=== PATIENT | male | born 1945 | race Caucasian/White ===

== ENCOUNTER 2016-07-14 11:17 | Day surgery (SDC) | payer MEDICARE ==
[~2016-07-14 11:17] MED LIST: ALPRAZolam 0.25 MG TAB PO PRN; ASPIRIN 325 MG TAB PO STA; SODIUM CHLORIDE 0.9% 1,000 ML in EMPTY BAG 1 BAG IV ONE
[2016-07-14 12:24] LABS: Basophils # (A) 0.1 k/uL (0-0.2); Basophils % (A) 1 %; CH 31.2; CHCM 33.7; Eosinophils # (A) 0.2 k/uL (0-0.7); Eosinophils % (A) 3 %; HCT 40.7 % (39.0-53.0); HDW 2.52; HGB 13.4 gm/dL (13.0-17.5); Luc # (Auto) 0.21; Luc % (Auto) 3; Lymphocytes # (A) 2.8 k/uL (1.0-4.8); Lymphocytes % (A) 36 %; MCH 30.8 pg (25.0-35.0); MCHC 33.1 g/dL (31.0-37.0); MCV 93.1 fL (80.0-100.0); Mean Platelet Volume 6.7; Monocytes # (A) 0.5 k/uL (0-1.0); Monocytes % (A) 6 %; Neutrophils # (A) 4.2 k/uL (1.3-7.7); Neutrophils % (A) 52 %; RBC 4.37 m/uL (4.30-5.90); RDW 13.5 % (11.5-15.5); WBC 7.9 k/uL (3.8-10.6); WBC (Perox) 7.89
[2016-07-14 13:11] LABS: Blood Urea Nitrogen 16 mg/dL (9-20); Calcium 9.1 mg/dL (8.4-10.2); Carbon Dioxide 25 mmol/L (22-30); Glucose 93 mg/dL (74-99); Non-African American GFR(MDRD) 54 (>60 ml/min/1.73 sqM); Potassium 4.4 mmol/L (3.5-5.1); Sodium 142 mmol/L (137-145)
[2016-07-14 13:20] LABS: Anion Gap 11 mmol/L; Chloride 106 mmol/L (98-107)
[2016-07-14] MEDS: HYDROcodone/APAP 10-325MG 1 EACH TAB ONE ×2 (14:22→14:30)
[2016-07-14] MEDS ORDERED: LIDOCAINE 2% INJ 20 MG/ML SQ ONE (14:51)
[2016-07-14] MEDS ORDERED: MIDAZOLAM 2 MG/2 ML VIAL IV ONE (14:52)
[2016-07-14] MEDS ORDERED: HEPARIN SODIUM 1,000 UNIT/ML VIAL IV ONE (14:58)
[2016-07-14] MEDS ORDERED: CLOPIDOGREL 75 MG TAB PO ONE (15:16)
[2016-07-14] MEDS ORDERED: HYDROcodone/APAP 10-325MG 1 EACH TAB PO PRN (15:44)
[2016-07-14] MEDS ORDERED: SODIUM CHLORIDE 0.9% 1,000 ML IV SCH (15:45)
[2016-07-14] MEDS ORDERED: IODIXANOL 320 MG/ML 100 ML INTRAARTER ONE (15:48)
[2016-07-14] MEDS ORDERED: ATROPINE SULFATE 0.1 MG/ML 10ML SYRINGE ONE ×2 (17:46→20:51)
[2016-07-14] MEDS ORDERED: hydrALAZINE HCL 20 MG/ML 1 ML VIAL IVP STA (18:53)
[2016-07-14] MEDS ORDERED: ENALAPRILAT 1.25 MG/ML 1 ML VIAL IVP STA (18:53)
[2016-07-14] MEDS ORDERED: HYDROmorphone 1 MG/ML 1 ML SYRINGE IVP STA (19:57)
[2016-07-14 20:18] VITALS: BMI 40.4
[2016-07-14 20:51] LABS: Glucose,Whole Blood 94 mg/dL (75-99)
[2016-07-14] MEDS ORDERED: MELATONIN 5 MG TABLET PO SCH (21:00)
[2016-07-14] MEDS ORDERED: LOSARTAN 50 MG TAB PO SCH (21:00)
[2016-07-14] MEDS ORDERED: ATORVASTATIN 10 MG TAB PO SCH (21:00)
[2016-07-14] MEDS ORDERED: ASPIRIN 325 MG TAB PO SCH (21:00)
[2016-07-14] MEDS ORDERED: MONTELUKAST 10 MG TAB PO SCH (21:00)
--- NOTE | 2016-07-14 21:14 | PCN ---
DATE OF PROCEDURE: Performing physician: Hakeem Lee M.D. welder assembler. PROCEDURES PERFORMED: 1. Selective right popliteal angiogram. 2. An atherectomy of the right popliteal artery using the TurboHawk hock device with good angiographic results. 3. Successful balloon angioplasty of the right popliteal artery using 7.0 x 40 mm drug-coated balloon with a good angiographic results. 4. Selective left common femoral artery angiogram. INDICATION: This is a pleasant 70-year-old gentleman who as sent by Dr. Cisneros for further evaluation regarding peripheral arterial disease. He underwent a peripheral angiogram a few weeks ago and that showed severe bilateral SFA disease. He was brought today to undergo a PYROMETALLURGICAL ENGINEER of the right SFA. Approach: Left common femoral artery in a contralateral retrograde technique. COMPLICATIONS: None. Level of sedation: Moderate. PROCEDURE DESCRIPTION: After obtaining informed consent, the patient was brought to the cardiac medical laboratory manager. The left common femoral artery was cannulated using micropuncture technique, the micropuncture wire passed easily, then I placed a 6 [place] sheath in the left common femoral artery. Subsequently anticoagulation was initiated using heparin and the patient was given a weight-based heparin. After that, I did select the right SFA using an 0.035 advantage wire with support from a 5 [place] Lucian rim catheter. I did advance the wire to the distal right SFA. Subsequently, I did exchange my [address] [place]ian sheath into [address] 6 [place] Lucian sheath using the 0.035 advantage wire. The tip of the sheath was positioned in the proximal right SFA. After that, I did cross the critical lesion involving the right popliteal using an 0.014 wire. After that, I did an atherectomy of the right popliteal using the TurboHawk device and I was able to extract plaque from the right popliteal artery. Subsequently, I did balloon angioplasty of the right popliteal initially using 5.0 x 20 mm balloon and then using 7.0 x 40 mm drug-coated balloon which was inflated under 4 atmospheres for 20 seconds. The following angiogram showed good angiographic result without perforation and without dissection. After that, I did exchange my long [address] Lucian sheath into short [address] [place]ian sheath using the advantage wire. Subsequently, I did selective left common femoral artery angiogram. The procedure was completed without any complication. POSTPROCEDURE MANAGEMENT: 1. Dual antiplatelet therapy. 2. Risk factor modifications. 3. Follow up with the patient. 4. PYROMETALLURGICAL ENGINEER of the left SFA.
--- NOTE | 2016-07-14 21:21 | LTR ---
July 14, 2016 RE: Reagan Sultana Eladio Dear Melchor: Mr. Reagan Sultana underwent successful atherectomy and balloon angioplasty of very critical right popliteal artery. The procedure was completed without any complication. Thank you for allowing me to participate in his care and please do not hesitate to call if you have any questions or concerns. Sincerely, FELICIANO MAYBERRY MD
[2016-07-14] MEDS: CILOSTAZOL 100 MG TAB PO SCH (22:24)
[2016-07-14] MEDS: DOCUSATE 100 MG CAP PO SCH (22:25)
[2016-07-15 05:30] VITALS: TEMP 97.2
[2016-07-15 05:58] LABS: Glucose,Whole Blood 97 mg/dL (75-99)
[2016-07-15] MEDS ORDERED: CLOPIDOGREL 75 MG TAB PO SCH (09:00)
[2016-07-15 09:21] VITALS: BP 127/59; PULSE 80; RESP 16
[2016-07-15] MEDS: DOCUSATE 100 MG CAP PO SCH (09:21)
[2016-07-15] MEDS: CILOSTAZOL 100 MG TAB PO SCH (09:21)
[2016-07-15 09:32] LABS: Basophils # (A) 0.1 k/uL (0-0.2); Basophils % (A) 1 %; CHCM 32.8; Eosinophils % (A) 0 %; HCT 38.6 % (39.0-53.0); HDW 2.37; HGB 12.5 gm/dL (13.0-17.5); Luc # (Auto) 0.14; Luc % (Auto) 1; Lymphocytes # (A) 1.5 k/uL (1.0-4.8); Lymphocytes % (A) 15 %; MCH 30.7 pg (25.0-35.0); MCHC 32.3 g/dL (31.0-37.0); MCV 94.9 fL (80.0-100.0); Mean Platelet Volume 6.9; Monocytes # (A) 0.5 k/uL (0-1.0); Monocytes % (A) 5 %; Neutrophils # (A) 7.7 k/uL (1.3-7.7); Neutrophils % (A) 78 %; RBC 4.07 m/uL (4.30-5.90); RDW 13.6 % (11.5-15.5); WBC 9.9 k/uL (3.8-10.6); WBC (Perox) 10.45
[2016-07-15 10:02] LABS: Potassium 4.9 mmol/L (3.5-5.1)
[2016-07-15] MEDS ORDERED: CHOLECALCIFEROL 1,000 UNIT TAB PO SCH (12:00)
--- NOTE | 2016-07-16 08:44 | DS ---
DATE OF ADMISSION: 07/14/2016 DATE OF DISCHARGE: 07/15/2016 BRIEF HISTORY: This is a pleasant 70-year-old gentleman who was admitted to the hospital yesterday and underwent successful angioplasty of the right popliteal artery with a good angiographic result and without any complication. The left groin, which was the access site, seems to be soft and nontender and without any bruises. The patient is going to be discharged home on dual antiplatelet therapy and I will follow up with the patient in the office as an outpatient.
--- NOTE | 2016-07-19 11:39 | IR ---
EXAMINATION TYPE: IR bellhop captain femoral popliteal DATE OF EXAM: 07/19/2016 11:36 AM COMPARISON: NONE HISTORY: Peripheral vascular occlusive disease. Fluoroscopy was applied to the referring clinician. See dictated report from cardiology.
--- NOTE | 2016-07-20 10:49 | CDI ---
Mr. Sultana was seen on 07/14 for a GATE MANAGER of the right popliteal artery. According to the Official Guidelines for Coding and Reporting (Section IV), in the outpatient setting diagnoses documented as "probable," "suspected," "questionable," "rule out," or "working diagnosis" are not coded. Rather, code the condition(s) to the highest degree of certainty for that encounter/visit, such as symptoms, signs, abnormal test results, or other reason for the visit. The term "consistent with" is considered one of these examples in which it is considered a diagnosis that is not confirmed. Per your H&P, this patient describes bilateral lower extremity discomfort consistent with intermittent claudication. Please clarify the diagnosis of PAD for your patient. *Patient has PAD with intermittent claudication *Patient has PAD without intermittent claudication *Other (please specify) *Clinically unable to determine *Unknown MTDD
== END 2016-07-15 11:27 | disposition home or self-care (01) ==
LOC: CATHCVL 11:17 → 6SEL 15:42 → CATHCVL 07-15 11:27
PROVIDERS: ATTEND Internal Medicine Interventional Cardiology
DX: I73.9 Peripheral vascular disease, unspecified (principal); I10 Essential (primary) hypertension; E78.5 Hyperlipidemia, unspecified; Z87.891 Personal history of nicotine dependence; Z82.49 Family history of ischemic heart disease and other diseases of the circulatory system; Z79.82 Long term (current) use of aspirin; Z79.899 Other long term (current) drug therapy; Z88.5 Allergy status to narcotic agent; Z88.0 Allergy status to penicillin
CPT/HCPCS: 37225; 80048 ×2; 85025 ×2; C1894 ×2; C1769 ×5; C1887; C1725; C1714; C2623; J2001; J2250; J0360; Q9967; J1644

== ENCOUNTER 2016-08-05 07:58 | Day surgery (SDC) | payer MEDICARE ==
[~2016-08-05 07:58] MED LIST changes: -ALPRAZolam 0.25 MG TAB PO PRN; +ALPRAZolam 0.5 MG TAB PO PRN; +ATORVASTATIN 80 MG TAB PO STA; +NITROGLYCERIN SL TABS 0.4 MG TAB SUBLINGUAL PRN; -SODIUM CHLORIDE 0.9% 1,000 ML in EMPTY BAG 1 BAG IV ONE
[2016-08-05] MEDS ORDERED: SODIUM CHLORIDE 0.9% 1,000 ML in EMPTY BAG 1 BAG IV ONE (08:00)
[2016-08-05] MEDS: ALPRAZolam 0.25 MG TAB PO PRN ×2 (08:52→14:22)
[2016-08-05 08:59] LABS: Anion Gap 10 mmol/L; Blood Urea Nitrogen 14 mg/dL (9-20); Calcium 8.8 mg/dL (8.4-10.2); Carbon Dioxide 22 mmol/L (22-30); Chloride 110 mmol/L (98-107); Glucose 89 mg/dL (74-99); Non-African American GFR(MDRD) >60 (>60 ml/min/1.73 sqM); Sodium 142 mmol/L (137-145)
[2016-08-05] MEDS ORDERED: MIDAZOLAM 2 MG/2 ML VIAL IV ONE (12:48)
[2016-08-05] MEDS ORDERED: LIDOCAINE 2% INJ 20 MG/ML SQ ONE (12:50)
[2016-08-05] MEDS: VERAPAMIL SYRINGE (5 MG/10 ML) INTRAARTER ONE ×2 (12:51→13:04)
[2016-08-05] MEDS ORDERED: IOHEXOL 350 MG/ML 100 ML BOTTLE INJ ONE (13:04)
[2016-08-05] MEDS ORDERED: RX INFO: IV CONTRAST WAS GIVEN 1 EACH MISC MISCELLANE PRN (13:08)
[2016-08-05] MEDS ORDERED: SODIUM CHLORIDE 0.9% 1,000 ML IV SCH (13:15)
[2016-08-05 13:39] VITALS: RESP 16
[2016-08-05] MEDS ORDERED: ALPRAZolam 0.25 MG TAB PO STA (14:20)
[2016-08-05 15:13] VITALS: BMI 32.3
[2016-08-05 15:44] VITALS: BP 189/87; PULSE 64; TEMP 97.8
--- NOTE | 2016-08-05 22:09 | CC ---
DATE OF SERVICE: 08/05/2016 PERFORMING PHYSICIAN: Hakeem Lee M.D., spanish teacher. PROCEDURE PERFORMED: Selective right and left coronary angiogram. INDICATION: This is a very pleasant 70-year-old gentleman with known peripheral arterial disease who was experiencing mild chest discomfort. He underwent myocardial perfusion imaging stress test which showed evidence of anterolateral ischemia. He was brought today to undergo a heart catheterization. APPROACH: Right radial artery. COMPLICATIONS: None. LEVEL OF SEDATION: Moderate. PROCEDURE DESCRIPTION: After obtaining informed consent, the patient was brought to the cardiac wharf laborer. Right radial artery was cannulated using micropuncture technique. The micropuncture passed easily, then I placed a 6 Serbian sheath in the right radial artery. Subsequently I gave the patient 2 mg of Verapamil IA and 5000 units of heparin IV. After that I did selective right and left coronary angiogram using JR4 and JL3.5 catheters. The procedure was completed without any complication. SELECTIVE CORONARY ANGIOGRAM: 1. The right coronary artery is chronically occluded in the proximal portion and fills by collateral from the left coronary system. 2. The left main is angiographically normal. It bifurcates into the left circumflex and left anterior descending artery. 3. The left circumflex is a large-caliber vessel and it is a codominant vessel. The proximal left circumflex appeared to have mild disease only and gives rise to the first OM branch, which is a small- to medium-caliber vessel and seems to be angiographically normal. The mid left circumflex appeared to have mild disease only. The left circumflex distally is normal and bifurcates into PDA and PLV branches; both are angiographically normal. 4. Left anterior descending artery. The proximal left anterior descending artery appeared to be angiographically normal and gives rises to the first diagonal branch, which seems to be angiographically normal. The mid LAD has mild disease only and the LAD distally appeared to be angiographically normal. CONCLUSION: Single-vessel coronary artery disease with chronic total occlusion of the proximal right coronary artery which fills by collateral from the left coronary system. POST-PROCEDURE MANAGEMENT: 1. Maximize medical treatment. 2. Follow up with the patient.
--- NOTE | 2016-08-05 22:11 | LTR ---
August 05, 2016 RE: Rd Reagan Eladio Dear Melchor, Mr. Reagan Sultana underwent a heart catheterization which showed chronic total occlusion of the right coronary artery which fills by collaterals from the left coronary system. Maximized medical treatment is recommended at this point of time. I want to thank you for allowing me to participate in his care. Please do not hesitate to call with any question or concern. Sincerely, FELICIANO MAYBERRY MD
== END 2016-08-05 19:05 | disposition home or self-care (01) ==
LOC: CATHCVL 07:58 → 3OBS 13:15 → CATHCVL 19:05
PROVIDERS: ATTEND Internal Medicine Interventional Cardiology
DX: I25.110 Atherosclerotic heart disease of native coronary artery with unstable angina pectoris (principal); I25.82 Chronic total occlusion of coronary artery; R94.39 Abnormal result of other cardiovascular function study; I73.9 Peripheral vascular disease, unspecified; I10 Essential (primary) hypertension; E78.5 Hyperlipidemia, unspecified; Z79.01 Long term (current) use of anticoagulants; Z79.82 Long term (current) use of aspirin; Z79.891 Long term (current) use of opiate analgesic; Z79.899 Other long term (current) drug therapy; Z88.5 Allergy status to narcotic agent; Z88.0 Allergy status to penicillin; Z82.49 Family history of ischemic heart disease and other diseases of the circulatory system; Z87.891 Personal history of nicotine dependence; E78.00 Pure hypercholesterolemia, unspecified
CPT/HCPCS: 93454; 80048; 99152; C1894; J2001; J2250; Q9967; J1644

== ENCOUNTER 2016-08-25 11:01 | Day surgery (SDC) | payer MEDICARE ==
[2016-08-23 09:24] VITALS: BMI 33.2
[~2016-08-25 11:01] MED LIST changes: -ALPRAZolam 0.5 MG TAB PO PRN; -ASPIRIN 325 MG TAB PO STA; -ATORVASTATIN 80 MG TAB PO STA; -NITROGLYCERIN SL TABS 0.4 MG TAB SUBLINGUAL PRN; +SODIUM CHLORIDE 0.9% 1,000 ML in EMPTY BAG 1 BAG IV ONE
[2016-08-25] MEDS ORDERED: ALPRAZolam 0.25 MG TAB ONE (11:23)
[2016-08-25] MEDS ORDERED: ALPRAZolam 0.25 MG TAB PO PRN (11:24)
[2016-08-25 12:04] LABS: Basophils # (A) 0.1 k/uL (0-0.2); Basophils % (A) 1 %; CH 31.3; CHCM 33.7; Eosinophils # (A) 0.3 k/uL (0-0.7); Eosinophils % (A) 2 %; HCT 41.1 % (39.0-53.0); HGB 13.9 gm/dL (13.0-17.5); Luc # (Auto) 0.35; Luc % (Auto) 3; Lymphocytes # (A) 2.5 k/uL (1.0-4.8); Lymphocytes % (A) 23 %; MCH 31.6 pg (25.0-35.0); MCHC 33.9 g/dL (31.0-37.0); MCV 93.4 fL (80.0-100.0); Mean Platelet Volume 7.4; Monocytes # (A) 0.7 k/uL (0-1.0); Monocytes % (A) 6 %; Neutrophils # (A) 6.9 k/uL (1.3-7.7); Neutrophils % (A) 64 %; RDW 13.7 % (11.5-15.5); WBC 10.7 k/uL (3.8-10.6); WBC (Perox) 10.65
[2016-08-25] MEDS ORDERED: LIDOCAINE 2% INJ 20 MG/ML SQ ONE (13:49)
[2016-08-25] MEDS ORDERED: MIDAZOLAM 2 MG/2 ML VIAL IVP ONE (13:49)
[2016-08-25] MEDS ORDERED: HEPARIN SODIUM 1,000 UNIT/ML VIAL IV ONE (13:56)
[2016-08-25] MEDS ORDERED: IODIXANOL 320 MG/ML 100 ML INTRAARTER ONE (14:21)
[2016-08-25] MEDS ORDERED: SODIUM CHLORIDE 0.9% 1,000 ML IV SCH (14:45)
--- NOTE | 2016-08-25 14:55 | IR ---
EXAMINATION TYPE: IR stent intravas non coronary DATE OF EXAM: 08/25/2016 2:50 PM COMPARISON: NONE HISTORY: Peripheral vascular occlusive disease. Fluoroscopy was applied to the referring clinician. See dictated report from cardiology.
[2016-08-25] MEDS ORDERED: ATROPINE SULFATE 0.1 MG/ML 10ML SYRINGE ONE (17:24)
--- NOTE | 2016-08-25 18:59 | CC ---
DATE OF SERVICE: 08/25/2016 PERFORMING PHYSICIAN: Hakeem Lee M.D. burial needs salesperson. PROCEDURE PERFORMED: 1. Selective right common iliac artery angiogram. 2. Intravascular ultrasound (IVUS) of the right common iliac artery. 3. Successful stenting of the right common iliac artery using 9.0 x 39 mm iCAST covered stent with good angiographic results. 4. Selective right and left common femoral artery angiogram. 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 He was brought today to undergo stenting of that artery. Approach: Right common femoral artery in retrograde ipsilateral technique. COMPLICATIONS: None. Level of sedation: Moderate. PROCEDURE DESCRIPTION: After obtaining informed consent, the patient was brought to the cardiac cemetery laborer. The right groin was prepped in the usual sterile fashion. Local anesthesia was achieved by injecting 2% Xylocaine subcutaneously into the right groin. The right common femoral artery was cannulated using micropuncture technique. Micropuncture wire passed easily. I placed a 7 Irish 23 cm bright tip sheath in the right common femoral artery. Subsequently anticoagulation was initiated using heparin and the patient was given 10,000 units of heparin IV. After that, I advanced V18 wire to the aorta and I did intravascular ultrasound over the V18 wire. I got a diameter of 8 mm. Subsequently, I did selective right common iliac artery angiogram. After I did exchange my V18 wire into an 0.035 Advantage wire. By angiogram, the diameter was about 9 mm and I decided to use 9 mm stent. Subsequently, I did direct stenting using 9 x 39 mm I-cast covered stent, where the stent was positioned under angiographic guidance and deployed under 12 atmospheres for 20 seconds. The following angiogram showed good angiographic results. Subsequently, I did exchange my 23 cm Brite tip sheath for an 11 cm sheath 7 Irish sheath over the Advantage wire. I did, then finally selective right common iliac artery angiogram. POSTPROCEDURE MANAGEMENT: 1. Dual antiplatelet therapy. 2. Risk factor modifications. 3. Follow up with the patient.
--- NOTE | 2016-08-25 19:01 | LTR ---
August 25, 2016 RE: Reagan Sultana Eladio Dear Melchor: Mr. Reagan Sultana underwent successful stenting of the right common iliac artery for aneurysmal dilatation of that artery. The procedure was completed without any complication. Thank you for allowing me to participate in his care. Sincerely, FELICIANO MAYBERRY MD
[2016-08-25] MEDS: HYDROcodone/APAP 10-325MG 1 EACH TAB PO PRN (20:21)
[2016-08-25] MEDS: DOCUSATE 100 MG CAP PO SCH (20:21)
[2016-08-25] MEDS: VARENICLINE 1 MG TAB PO SCH (20:21)
[2016-08-25] MEDS ORDERED: MELATONIN 5 MG TABLET PO SCH (21:00)
[2016-08-25] MEDS ORDERED: ATORVASTATIN 10 MG TAB PO SCH (21:00)
[2016-08-25] MEDS ORDERED: MONTELUKAST 10 MG TAB PO SCH (21:00)
[2016-08-25] MEDS ORDERED: LOSARTAN 50 MG TAB PO SCH (21:00)
[2016-08-25] MEDS ORDERED: ASPIRIN 325 MG TAB PO SCH (21:00)
[2016-08-26 06:15] LABS: Basophils # (A) 0.1 k/uL (0-0.2); Basophils % (A) 1 %; CH 31.1; CHCM 32.8; Eosinophils # (A) 0.2 k/uL (0-0.7); Eosinophils % (A) 3 %; HCT 37.8 % (39.0-53.0); HDW 2.52; HGB 12.1 gm/dL (13.0-17.5); Luc # (Auto) 0.19; Luc % (Auto) 3; Lymphocytes # (A) 1.9 k/uL (1.0-4.8); Lymphocytes % (A) 24 %; MCH 30.7 pg (25.0-35.0); MCHC 32.1 g/dL (31.0-37.0); MCV 95.5 fL (80.0-100.0); Mean Platelet Volume 6.5; Monocytes # (A) 0.5 k/uL (0-1.0); Monocytes % (A) 6 %; Neutrophils # (A) 4.9 k/uL (1.3-7.7); Neutrophils % (A) 63 %; RBC 3.96 m/uL (4.30-5.90); RDW 13.7 % (11.5-15.5); WBC 7.8 k/uL (3.8-10.6); WBC (Perox) 8.23
[2016-08-26 06:48] LABS: Anion Gap 8 mmol/L; Blood Urea Nitrogen 16 mg/dL (9-20); Calcium 8.9 mg/dL (8.4-10.2); Carbon Dioxide 25 mmol/L (22-30); Chloride 108 mmol/L (98-107); Glucose 95 mg/dL (74-99); Non-African American GFR(MDRD) 59 (>60 ml/min/1.73 sqM); Potassium 4.6 mmol/L (3.5-5.1); Sodium 141 mmol/L (137-145)
[2016-08-26 07:33] VITALS: BP 182/76; PULSE 70; RESP 18; TEMP 97.2
[2016-08-26] MEDS: VARENICLINE 1 MG TAB PO SCH (08:25)
[2016-08-26] MEDS: DOCUSATE 100 MG CAP PO SCH (08:25)
[2016-08-26] MEDS: HYDROcodone/APAP 10-325MG 1 EACH TAB PO PRN (08:28)
[2016-08-26] MEDS ORDERED: CLOPIDOGREL 75 MG TAB PO SCH (09:00)
[2016-08-26] MEDS ORDERED: CHOLECALCIFEROL 1,000 UNIT TAB PO SCH (09:00)
--- NOTE | 2016-08-26 09:30 | DS ---
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 Was admitted to the hospital yesterday and underwent successful isolating the aneurysm using 9 mm x 39 mm ( ) stent with a angiographic results. The procedure was performed from the right common femoral artery, which in the right groin seems to be soft and nontender and without any bruises. The patient is going to be discharged home on dual antiplatelet therapy and I will follow up with the patient as an outpatient in the office.
== END 2016-08-26 10:47 | disposition home or self-care (01) ==
LOC: CATHCVL 11:01 → 6SEL 14:22 → CATHCVL 08-26 10:47
PROVIDERS: ATTEND Internal Medicine Interventional Cardiology
DX: I72.3 Aneurysm of iliac artery (principal); I73.9 Peripheral vascular disease, unspecified; I10 Essential (primary) hypertension; E78.5 Hyperlipidemia, unspecified; I25.10 Atherosclerotic heart disease of native coronary artery without angina pectoris; Z79.01 Long term (current) use of anticoagulants; Z79.82 Long term (current) use of aspirin; Z79.891 Long term (current) use of opiate analgesic; Z79.899 Other long term (current) drug therapy; Z88.5 Allergy status to narcotic agent; Z88.0 Allergy status to penicillin; Z88.8 Allergy status to other drugs, medicaments and biological substances; Z82.49 Family history of ischemic heart disease and other diseases of the circulatory system; Z87.891 Personal history of nicotine dependence
CPT/HCPCS: 37221; 37252; 80048; 85025 ×2; 99152; 99153; C1894 ×2; C1874; C1769 ×5; C1753; J2001; J2250; Q9967; J1644

== ENCOUNTER 2017-09-27 15:47 | Emergency (ER) | payer MEDICARE ==
[2017-09-27 15:59] VITALS: TEMP 98.3
[2017-09-27] MEDS ORDERED: KETOROLAC 30 MG/ML 1 ML VIAL IVP STA (16:21)
--- NOTE | 2017-09-27 16:24 | ED ---
Neuro HPI - General Chief Complaint: Neuro Symptoms/Deficit Stated Complaint: Neck & arm pain Time Seen by Provider: 09/27/17 16:12 Source: patient, RN notes reviewed Mode of arrival: wheelchair Limitations: no limitations - History of Present Illness Is the patient presenting with stroke symptoms?: No Initial Comments: This is a 72-year-old male who presents with complaints of pain radiating from his neck down into his right arm. He states it was starting yesterday with stiffness in his right side of his neck a got worse and now again radiates to the arm pain is moderate to severe 8 and 9/10 severity with movement is better at rest. He is predominantly left handed. He does not recall any particular incident that may have hurt his neck or right shoulder area. He denies any overt anterior chest pain shortness breath fevers chills sweats or other symptoms no other modifying factors. He has of a history of peripheral vascular disease. He does have a history of low back surgery. - Related Data Home Medications: Home Medications Medication Instructions Recorded Confirmed Docusate [Colace] 100 mg PO BID 02/12/15 09/27/17 Melatonin 3 mg PO HS 02/12/15 09/27/17 Atorvastatin [Lipitor] 10 mg PO HS 06/09/16 09/27/17 Cholecalciferol [Vitamin D3] 2,000 unit PO DAILY 06/09/16 09/27/17 Montelukast [Singulair] 10 mg PO DAILY 06/09/16 09/27/17 HYDROcodone/APAP 10-325MG [[place] 1 tab PO Q6H PRN 06/17/16 09/27/17 10-325] Aspirin 325 mg PO HS 08/02/16 09/27/17 Losartan Potassium 100 mg PO DAILY 08/23/16 09/27/17 Doxylamine Succinate [Unisom] 50 mg PO HS 09/27/17 09/27/17 amLODIPine BESYLATE [Norvasc] 10 mg PO DAILY 09/27/17 09/27/17 Previous Rx's Medication Instructions Recorded Clopidogrel Bisulfate [Plavix] 75 mg PO DAILY #90 tab 07/15/16 Cyclobenzaprine [Flexeril] 10 mg PO TID #14 tab 09/27/17 methylPREDNISolone Dose Pack 4 mg PO DIRECTED #21 package 09/27/17 [Medrol Dose Pack] Allergies/Adverse Reactions: Allergies Allergy/AdvReac Type Severity Reaction Status Date / Time capsaicin Allergy Burned Skin Verified 09/27/17 16:23 Penicillins Allergy Dyspnea,swe Verified 09/27/17 16:23 lling morphine AdvReac Hallucinati Verified 09/27/17 16:23 ons oxycodone HCl [From Percocet] AdvReac Nausea & Verified 09/27/17 16:23 Vomiting Review of Systems ROS Statement: Those systems with pertinent positive or pertinent negative responses have been documented in the HPI. ROS Other: All systems not noted in ROS Statement are negative. General Exam - General Exam Comments Initial Comments: This is a well-developed well-nourished awake alert oriented 3 male Limitations: no limitations General appearance: alert, in no apparent distress Head exam: Present: atraumatic, normocephalic, normal inspection Eye exam: Present: normal appearance, PERRL, EOMI. Absent: scleral icterus, conjunctival injection, periorbital swelling ENT exam: Present: normal exam, mucous membranes moist Neck exam: Present: normal inspection, tenderness, full ROM (Tennis palpation of the right lateral neck musculature and trapezius muscle no spinous process tenderness. This does reproduce the pain patient complains of palpation.). Absent: meningismus, lymphadenopathy Respiratory exam: Present: normal lung sounds bilaterally. Absent: respiratory distress, wheezes, rales, rhonchi, stridor Cardiovascular Exam: Present: regular rate, normal rhythm, normal heart sounds. Absent: systolic murmur, diastolic murmur, rubs, gallop, clicks GI/Abdominal exam: Present: soft, normal bowel sounds. Absent: distended, tenderness, guarding, rebound, rigid Extremities exam: Present: normal inspection, full ROM, normal capillary refill. Absent: tenderness, pedal edema, joint swelling, calf tenderness Back exam: Present: normal inspection Neurological exam: Present: alert, oriented X3, CN II-XII intact Psychiatric exam: Present: normal affect, normal mood Skin exam: Present: warm, dry, intact, normal color. Absent: rash Stroke MDM - Lab Data Result diagrams: 09/27/17 16:55 09/27/17 16:55 Lab Results 09/27/17 09/27/17 09/27/17 Range/Units 16:55 16:55 16:55 WBC 12.2 H (3.8-10.6) k/uL RBC 4.49 (4.30-5.90) m/uL Hgb 13.3 (13.0-17.5) gm/dL Hct 39.3 (39.0-53.0) % MCV 87.6 (80.0-100.0) fL MCH 29.6 (25.0-35.0) pg MCHC 33.8 (31.0-37.0) g/dL RDW 13.7 (11.5-15.5) % Plt Count 278 (150-450) k/uL Neutrophils % 67 % Lymphocytes % 21 % Monocytes % 7 % Eosinophils % 2 % Basophils % 1 % Neutrophils # 8.1 H (1.3-7.7) k/uL Lymphocytes # 2.6 (1.0-4.8) k/uL Monocytes # 0.9 (0-1.0) k/uL Eosinophils # 0.3 (0-0.7) k/uL Basophils # 0.1 (0-0.2) k/uL PT 9.7 (9.0-12.0) sec INR 1.0 (<1.2) APTT 24.4 (22.0-30.0) sec Sodium (137-145) mmol/L Potassium (3.5-5.1) mmol/L Chloride (98-107) mmol/L Carbon Dioxide (22-30) mmol/L Anion Gap mmol/L BUN (9-20) mg/dL Creatinine (0.66-1.25) mg/dL Est GFR (CKD-EPI)AfAm (>60 ml/min/1.73 sqM) Est GFR (CKD-EPI)NonAf (>60 ml/min/1.73 sqM) Glucose (74-99) mg/dL Calcium (8.4-10.2) mg/dL Magnesium (1.6-2.3) mg/dL Total Bilirubin (0.2-1.3) mg/dL AST (17-59) U/L ALT (21-72) U/L Alkaline Phosphatase (38-126) U/L Total Creatine Kinase 182 H (55-170) U/L CK-MB (CK-2) 1.7 (0.0-2.4) ng/mL CK-MB (CK-2) Rel Index 0.9 Troponin I <0.012 (0.000-0.034) ng/mL Total Protein (6.3-8.2) g/dL Albumin (3.5-5.0) g/dL 09/27/17 Range/Units 16:55 WBC (3.8-10.6) k/uL RBC (4.30-5.90) m/uL Hgb (13.0-17.5) gm/dL Hct (39.0-53.0) % MCV (80.0-100.0) fL MCH (25.0-35.0) pg MCHC (31.0-37.0) g/dL RDW (11.5-15.5) % Plt Count (150-450) k/uL Neutrophils % % Lymphocytes % % Monocytes % % Eosinophils % % Basophils % % Neutrophils # (1.3-7.7) k/uL Lymphocytes # (1.0-4.8) k/uL Monocytes # (0-1.0) k/uL Eosinophils # (0-0.7) k/uL Basophils # (0-0.2) k/uL PT (9.0-12.0) sec INR (<1.2) APTT (22.0-30.0) sec Sodium 142 (137-145) mmol/L Potassium 4.1 (3.5-5.1) mmol/L Chloride 104 (98-107) mmol/L Carbon Dioxide 24 (22-30) mmol/L Anion Gap 14 mmol/L BUN 15 (9-20) mg/dL Creatinine 1.05 (0.66-1.25) mg/dL Est GFR (CKD-EPI)AfAm 81 (>60 ml/min/1.73 sqM) Est GFR (CKD-EPI)NonAf 70 (>60 ml/min/1.73 sqM) Glucose 84 (74-99) mg/dL Calcium 9.2 (8.4-10.2) mg/dL Magnesium 1.8 (1.6-2.3) mg/dL Total Bilirubin 0.4 (0.2-1.3) mg/dL AST 21 (17-59) U/L ALT 26 (21-72) U/L Alkaline Phosphatase 132 H (38-126) U/L Total Creatine Kinase (55-170) U/L CK-MB (CK-2) (0.0-2.4) ng/mL CK-MB (CK-2) Rel Index Troponin I (0.000-0.034) ng/mL Total Protein 7.3 (6.3-8.2) g/dL Albumin 4.2 (3.5-5.0) g/dL - NIH Stroke Scale 1a. Level of Consciousness: (0) alert 1b. LOC Questions: (0) answers correctly 1c. LOC Commands: (0) performs tasks correctly 2. Best Gaze: (0) normal 3. Visual: (0) no visual loss 4. Facial Palsy: (0) normal symmetrical movement 5a. Motor Arm Left: (0) no drift 5b. Motor Arm Right: (0) no drift 6a. Motor Leg Left: (0) no drift 6b. Motor Leg Right: (0) no drift 7. Limb Ataxia: (0) absent 8. Sensory: (0) normal 9. Best Language: (0) no aphasia 10. Dysarthria: (0) normal 11. Extinction/Inattention: (0) no abnormality - Medical Decision Making Patient did get some relief from the right sided neck pain the presentation is consistent with a musculoskeletal etiology and cervical radiculopathy. He will be discharged on appropriate anti-inflammatories he does have pain medication at home he has used in the past he also has requested muscle relaxers which he has used without difficulty. - EKG Data -: EKG Interpreted by Me EKG shows normal: sinus rhythm (Normal sinus rhythm of 76. Interval 174 QRS 68 QT since QTC 38/436 st-t wave changes this is a normal-appearing EKG) Past Medical History Past Medical History: Hypertension, Osteoarthritis (OA), Vascular Disorder Additional Past Medical History / Comment(s): circulation problems in both legs , lot of numbness, pain in left foot, SOB with activity, dr watching aneurysm in "groin area" History of Any Multi-Drug Resistant Organisms: None Reported Past Surgical History: Back Surgery, Heart Catheterization, Hernia Repair, Joint Replacement Additional Past Surgical History / Comment(s): Right hip replacement, back surg. x 3, AORTOGRAM, rt fem pop Past Anesthesia/Blood Transfusion Reactions: No Reported Reaction Past Psychological History: No Psychological Hx Reported Smoking Status: Former smoker Past Alcohol Use History: Rare Past Drug Use History: None Reported - Past Family History Mother Family Medical History: Cancer Additional Family Medical History / Comment(s): BREAST CANCER Brother(s) Family Medical History: Cancer Additional Family Medical History / Comment(s): prostate Course Vital Signs 09/27/17 15:54 Temperature 98.3 F Pulse Rate 91 Respiratory 18 Rate Blood Pressure 188/78 O2 Sat by Pulse 98 Oximetry Disposition Clinical Impression: Cervical radiculopathy, Muscle spasm Disposition: HOME SELF-CARE Condition: Good Instructions: Neck Pain (ED), Cervical Radiculopathy (ED), Muscle Spasm (ED) Prescriptions: Cyclobenzaprine [Flexeril] 10 mg PO TID #14 tab methylPREDNISolone Dose Pack [Medrol Dose Pack] 4 mg PO DIRECTED #21 package Referrals: Melchor Cisneros MD [Primary Care Provider] - 1-2 days
[2017-09-27 17:17] LABS: Basophils # (A) 0.1 k/uL (0-0.2); Basophils % (A) 1 %; Eosinophils # (A) 0.3 k/uL (0-0.7); Eosinophils % (A) 2 %; HCT 39.3 % (39.0-53.0); HGB 13.3 gm/dL (13.0-17.5); Lymphocytes # (A) 2.6 k/uL (1.0-4.8); Lymphocytes % (A) 21 %; MCH 29.6 pg (25.0-35.0); MCHC 33.8 g/dL (31.0-37.0); MCV 87.6 fL (80.0-100.0); Mean Platelet Volume 6.8; Monocytes # (A) 0.9 k/uL (0-1.0); Monocytes % (A) 7 %; Neutrophils # (A) 8.1 k/uL (1.3-7.7); Neutrophils % (A) 67 %; Platelet Count 278 k/uL (150-450); RBC 4.49 m/uL (4.30-5.90); RDW 13.7 % (11.5-15.5); WBC 12.2 k/uL (3.8-10.6)
[2017-09-27 17:25] LABS: Albumin 4.2 g/dL (3.5-5.0); Calcium 9.2 mg/dL (8.4-10.2); Magnesium 1.8 mg/dL (1.6-2.3); Partial Thromboplastin Time 24.4 sec (22.0-30.0); Potassium 4.1 mmol/L (3.5-5.1); Prothrombin Time 9.7 sec (9.0-12.0); Total Bilirubin 0.4 mg/dL (0.2-1.3); Total Protein 7.3 g/dL (6.3-8.2)
--- NOTE | 2017-09-27 17:28 | XR ---
EXAMINATION TYPE: XR chest 2V DATE OF EXAM: 09/27/2017 COMPARISON: NONE HISTORY: Neck pain. Cough. TECHNIQUE: Frontal and lateral views of the chest are obtained. FINDINGS: Heart is normal. There is some coarsening of interstitial pulmonary markings. There are bi lateral apparent nipple shadows. There is no pleural effusion. There is spurring in the thoracic spin e. Thoracic aorta is atheromatous. IMPRESSION: Pulmonary interstitial fibrotic changes. Normal heart. No heart failure.
--- NOTE | 2017-09-27 17:29 | XR ---
EXAMINATION TYPE: XR cervical spine comp DATE OF EXAM: 09/27/2017 COMPARISON: NONE HISTORY: Neck pain TECHNIQUE: 6 views FINDINGS: Vertebra overall have fairly normal alignment. Posterior elements are intact. Atlantoaxial facet joint is normal. Neural foraminal narrowing at C4-5 due to facet arthropathy. There are no cerv ical ribs. Atlantoaxial facet joint is normal. There is mild anterior spurring at C5-6. IMPRESSION: Mild degenerative changes. No fracture seen.
[2017-09-27 17:39] LABS: Creatine Kinase 182 U/L (55-170)
[2017-09-27 17:53] LABS: Creatine Kinase MB 1.7 ng/mL (0.0-2.4); Troponin I <0.012 ng/mL (0.000-0.034)
[2017-09-27] MEDS ORDERED: HYDROcodone/APAP 10-325MG 1 EACH TAB PO ONE (18:12)
[2017-09-27] MEDS ORDERED: methylPREDNISolone SOD SUCCI 125 MG/2 ML VIAL IV STA (19:17)
[2017-09-27 19:23] VITALS: BP 164/101; PULSE 62; RESP 16
== END 2017-09-27 19:46 | disposition home or self-care (01) ==
LOC: EC 15:47
DX: M54.12 Radiculopathy, cervical region (principal); I10 Essential (primary) hypertension; I73.9 Peripheral vascular disease, unspecified; R29.700 NIHSS score 0; Z96.641 Presence of right artificial hip joint; Z87.891 Personal history of nicotine dependence; Z79.82 Long term (current) use of aspirin; Z79.899 Other long term (current) drug therapy; Z88.0 Allergy status to penicillin; Z88.5 Allergy status to narcotic agent; Z91.048 Other nonmedicinal substance allergy status
CPT/HCPCS: 36415; 93005; 80053; 82550; 82553; 83735; 84484; 85025; 85610; 85730; 72050; 71046; 99284; 96374; 96375; J2930; J1885

== ENCOUNTER → 2017-10-31 | Outpatient (CLI) | payer MEDICARE ==
--- NOTE | 2017-10-31 14:43 | CTL ---
EXAMINATION TYPE: CT Low Dose Lung DATE OF EXAM ORDERED: 10/31/2017 HISTORY: Long-term tobacco use. Lung cancer screening CT DLP: 138.[address] CTDI: 3.8 mGy Automated exposure control for dose reduction was used. SCREENING VISIT: Initial study COMPARISON: None TECHNIQUE: Low dose computed tomography scan was performed through the chest at 1 mm thick sections a nd reconstructed images in the coronal plane at [address] DIAGNOSTIC QUALITY: Satisfactory FINDINGS: LUNG NODULES: Present, detailed below: A 4 x 4 mm solid nodule axial image 142 right lower lobe. A 5 x 3 mm spiculated nodular scarlike opac ity left upper lobe axial image 96. Some scattered additional smaller nodules and scarlike opacities bilaterally. No suspicious greater than 4 mm parenchymal nodules identified. LUNGS: COPD: Severity: Mild to minimal Fibrosis: Severity: Overall mild to moderate Lymph nodes: No suspicious greater than 1 cm. Other findings: None BILATERAL PLEURAL SPACE: Effusion: None Calcification: None Thickening: None Pneumothorax: None HEART: Heart Size: Normal Coronary calcification: Moderate three-vessel Pericardial effusion: None OTHER FINDINGS: Upper abdomen: Mild to moderate fat replaced atrophy of pancreas. Bony thorax: Moderate to severe multilevel anterior and lateral spurring in the thoracic spine. Supraclavicular region: None Other: Mild to moderate calcified plaque of the visualized aorta. IMPRESSION: Scattered fibrosis with scattered tiny nodules. FOLLOW UP CT CHEST RECOMMENDATION: Low dose lung screening CT in [address] LUNG RAD: Lung-Rad 3 Probably Benign
== END | disposition home or self-care (01) ==
LOC: RADCTMAIN 12:51
PROVIDERS: ATTEND Family Medicine
DX: Z12.2 Encounter for screening for malignant neoplasm of respiratory organs (principal); R91.8 Other nonspecific abnormal finding of lung field; J84.10 Pulmonary fibrosis, unspecified; F17.200 Nicotine dependence, unspecified, uncomplicated

== ENCOUNTER → 2018-07-10 | Outpatient (CLI) | payer MEDICARE ==
--- NOTE | 2018-07-10 14:14 | CTL ---
EXAMINATION TYPE: CT Low Dose Lung DATE OF EXAM ORDERED: 07/10/2018 HISTORY: Long-term tobacco use. Lung cancer screening CT DLP: [address] CTDI: 2.18 mGy Automated exposure control for dose reduction was used. SCREENING VISIT: Second study COMPARISON: CT lung study October 31, 2017 TECHNIQUE: Low dose computed tomography scan was performed through the chest at 1 mm thick sections a nd reconstructed images in the coronal plane at [address] DIAGNOSTIC QUALITY: Limited, but interpretable Due to patient's body habitus. FINDINGS: LUNG NODULES: Present, detailed below: There is stable 4 x 4 mm superior right lower lobe nodule axial image 162. A 5 x 3 mm scarlike opacities posterior aspect left upper lobe axial image 108 there is slightly less prominent from prior. There are scattered smaller nodules and nodular opacities redemonstrated bilaterally, some are new fo r reference 4 x 4 mm nodule superior aspect left lower lobe axial image 96 is noted. For reference th ere is new 9 x 6 mm scarlike opacity or nodular scar axial image 141 noted. Additional scattered smal ler nodules 4 mm or smaller throughout both lungs are felt present some which are new from prior. LUNGS: COPD: Severity: Mild Fibrosis: Severity: Mild Lymph nodes: There is borderline enlarged right paratracheal 1.2 x 0.9 cm lymph node axial image 14 n oted. Other findings: None BILATERAL PLEURAL SPACE: Effusion: None Calcification: None Thickening: None Pneumothorax: None HEART: Heart Size: Normal Coronary calcification: Moderate three-vessel Pericardial effusion: None OTHER FINDINGS: Upper abdomen: Artifact degradation. Bony thorax: Moderate multilevel spurring is present Supraclavicular region: None. Other: Mild to moderate calcified plaque of aorta is redemonstrated. IMPRESSION: Scattered small nodules redemonstrated, new nodules are noted measuring up to 9 x 6 mm in size FOLLOW UP CT CHEST RECOMMENDATION: 3 month follow-up low-dose lung screening CT CT LUNG RAD: Lung-Rad 4A Suspicious
== END | disposition home or self-care (01) ==
LOC: RADCTMAIN 13:05
PROVIDERS: ATTEND Family Medicine
DX: R91.8 Other nonspecific abnormal finding of lung field (principal); Z87.891 Personal history of nicotine dependence

== ENCOUNTER → 2018-10-09 | Outpatient (CLI) | payer MEDICARE ==
--- NOTE | 2018-10-09 15:03 | CTL ---
EXAMINATION TYPE: CT Low Dose Lung DATE OF EXAM ORDERED: 10/09/2018 COMPARISON: 07/10/2018 HISTORY: . Low Dose CT Lung Screening CT DLP: [address] CTDI: 2.41 mGy IV CONTRAST USED: None. SCREENING VISIT: First visit COMPARISON: None. TECHNIQUE: Low dose computed tomography scan was performed through the chest at 1 millimeter thick se ctions and reconstructed images in the coronal plane at [address] DIAGNOSTIC QUALITY: Satisfactory FINDINGS: There is stable 4 x 4 mm superior right lower lobe nodule axial image 154. A 5 x 3 mm scarlike opacit y posterior aspect left upper lobe axial image 108 there is not redemonstrated at this time. There ar e scattered smaller nodules and nodular opacities redemonstrated bilaterally all of which is stable. Additional scattered smaller nodules 4 mm or smaller throughout both lungs are felt present which rem ains stable. LUNGS: COPD: Severity: Mild Fibrosis: Severity:None Lymph nodes: None Other findings: None RIGHT PLEURAL SPACE: Effusion: None Calcification: None Thickening: None Pneumothorax: None LEFT PLEURAL SPACE: Effusion: None Calcification: None Thickening: None Pneumothorax: None HEART: Heart Size: Mildly enlarged Coronary calcification: Moderate three-vessel calcifications noted. Pericardial effusion: None OTHER FINDINGS: Upper abdomen: No significant abnormality Bony thorax: Degenerative changes Supraclavicular region: No significant abnormalityOther: No significant abnormalityI IMPRESSION: 1. Scattered small nodules are essentially unchanged from prior examination. No new nodules are evide nt at this time. Follow-up in one year is advised. FOLLOW UP CT CHEST RECOMMENDATION: Follow-up screening in one year CT LUNG RAD: LUNG RAD CATEGORY benign appearance category 2.
== END | disposition home or self-care (01) ==
LOC: RADCTMAIN 14:27
PROVIDERS: ATTEND Nurse Practitioner Adult Health
DX: Z12.2 Encounter for screening for malignant neoplasm of respiratory organs (principal); R91.8 Other nonspecific abnormal finding of lung field; Z87.891 Personal history of nicotine dependence

== ENCOUNTER → 2019-10-08 | Outpatient (CLI) | payer MEDICARE ==
[2019-10-08 11:45] LABS: Basophils # (A) 0.1 k/uL (0-0.2); Basophils % (A) 1 %; Eosinophils # (A) 0.2 k/uL (0-0.7); Eosinophils % (A) 2 %; HCT 39.4 % (39.0-53.0); HGB 12.7 gm/dL (13.0-17.5); Lymphocytes # (A) 2.3 k/uL (1.0-4.8); Lymphocytes % (A) 25 %; MCH 30.3 pg (25.0-35.0); MCHC 32.3 g/dL (31.0-37.0); MCV 93.6 fL (80.0-100.0); Mean Platelet Volume 7.2; Monocytes # (A) 0.6 k/uL (0-1.0); Monocytes % (A) 7 %; Neutrophils # (A) 5.7 k/uL (1.3-7.7); Neutrophils % (A) 62 %; Platelet Count 258 k/uL (150-450); RBC 4.21 m/uL (4.30-5.90); RDW 13.6 % (11.5-15.5); WBC 9.1 k/uL (3.8-10.6)
[2019-10-08 12:28] LABS: Erythrocyte Sedimentation Rate 14 mm/hr (0-15)
== END | disposition home or self-care (01) ==
LOC: LABWHC1 10:48
PROVIDERS: ATTEND Orthopaedic Surgery
DX: M25.551 Pain in right hip (principal)
CPT/HCPCS: 36415; 85025; 85652; 86140

== ENCOUNTER → 2019-12-11 | Outpatient (CLI) | payer MEDICARE ==
--- NOTE | 2019-12-11 14:10 | CT ---
EXAMINATION TYPE: CT hip RT wo con DATE OF EXAM: 12/11/2019 COMPARISON: X-ray 05/19/2015 HISTORY: Right hip pain. CT DLP: 993.7 mGycm Automated exposure control for dose reduction was used. 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 Artifact results in a markedly Limited exam. There is atrophy of the adjacent musculature and vascular calcifications. There is no acute fracture. There is no dislocation. There is no destructive changes. No erosive changes of the SI joint. Hypertrophic changes involving the lower lumbar spine incidentall y noted. Suggestion of possible laminectomy involving the lower lumbar spine which could be correlate d clinically. Question of an iliac artery stent on the right correlate clinically. No soft tissue hematomas are see n. There is spurring and soft tissue ossification along the greater trochanter. Question a small amount adjacent thickening of the soft tissue. IMPRESSION: 1. Postsurgical changes. No acute fracture. If there is concern for loosening or infection correlate with nuclear medicine exam. 2. Spurring along the greater trochanter with adjacent soft tissue thickening can occasionally be ass ociated with trochanteric bursitis correlate clinically.
== END | disposition home or self-care (01) ==
LOC: RADCTMAIN 13:13
PROVIDERS: ATTEND Orthopaedic Surgery
DX: M79.89 Other specified soft tissue disorders (principal); Z98.890 Other specified postprocedural states; M70.61 Trochanteric bursitis, right hip; I10 Essential (primary) hypertension; F17.200 Nicotine dependence, unspecified, uncomplicated

== ENCOUNTER → 2019-12-21 | Outpatient (CLI) | payer MEDICARE ==
--- NOTE | 2019-12-21 13:33 | CTL ---
EXAMINATION TYPE: CT Low Dose Lung DATE OF EXAM ORDERED: 12/21/2019 HISTORY: . Lung cancer screening CT DLP: [address] CTDI: 3.6 mGy Automated exposure control for dose reduction was used. SCREENING VISIT: Follow-up COMPARISON: 10/09/2018 TECHNIQUE: Low dose computed tomography scan was performed through the chest at 1 mm thick sections a nd reconstructed images in the coronal plane at [address] DIAGNOSTIC QUALITY: Satisfactory FINDINGS: There is stable 4 x 4 mm superior right lower lobe . A 5 x 3 mm scarlike opacity posterior aspect lef t upper lobe axial there is not redemonstrated at this time. There is a 4 mm nodule in the right uppe r lobe axial image 144 retrospectively stable. There are scattered subpleural less than 5 mm nodules redemonstrated bilaterally all of which is sta ble. Additional scattered smaller nodules 4 mm or smaller throughout both lungs are felt present whic h remains stable. Mild basilar bronchiectasis LUNGS: COPD: Severity: Mild Fibrosis: Severity: None Lymph nodes: None Other findings: None PLEURAL SPACE: Effusion: None Calcification: None Thickening: None Pneumothorax: None HEART: Heart Size: Mildly enlarged Coronary calcification: Moderate three-vessel coronary atherosclerotic disease Pericardial effusion: None OTHER FINDINGS: Upper abdomen: No significant abnormality Bony thorax: Degenerative changes Supraclavicular region: No significant abnormality IMPRESSION: 1. Stable small bilateral pulmonary nodules measuring 5 mm or less. 2. COPD FOLLOW UP CT CHEST RECOMMENDATION: Follow-up screening in one year CT LUNG RAD: Lung-Rad 2 Benign Appearance or Behavior
== END | disposition home or self-care (01) ==
LOC: RADCTMAIN 12:53
PROVIDERS: ATTEND Family Medicine
DX: Z12.2 Encounter for screening for malignant neoplasm of respiratory organs (principal); R91.1 Solitary pulmonary nodule; J44.9 Chronic obstructive pulmonary disease, unspecified; F17.210 Nicotine dependence, cigarettes, uncomplicated

== ENCOUNTER 2020-05-26 09:55 | Day surgery (SDC) | payer MEDICARE ==
[2020-05-22 11:30] VITALS: BMI 33.2
[~2020-05-26 09:55] MED LIST changes: +ALPRAZolam 0.25 MG TAB PO PRN; +ALPRAZolam 0.5 MG TAB PO PRN; +ASPIRIN 325 MG TAB PO STA; +ATORVASTATIN 80 MG TAB PO STA; +NITROGLYCERIN SL TABS 0.4 MG TAB SUBLINGUAL PRN
[2020-05-26] MEDS ORDERED: SODIUM CHLORIDE 0.9% 1,000 ML IV ONE (10:07)
[2020-05-26 10:26] VITALS: TEMP 98.4
[2020-05-26 10:54] LABS: Calcium 9.3 mg/dL (8.4-10.2); Potassium 4.5 mmol/L (3.5-5.1)
[2020-05-26] MEDS ORDERED: MIDAZOLAM 2 MG/2 ML VIAL IVP ONE (12:47)
[2020-05-26] MEDS ORDERED: LIDOCAINE 1% INJ 10MG/ML (20 ML MDV) SQ ONE (12:48)
[2020-05-26] MEDS: VERAPAMIL SYRINGE (5 MG/10 ML) INTRAARTER ONE ×2 (12:50→13:00)
[2020-05-26] MEDS ORDERED: HEPARIN SODIUM 1,000 UN/ML (10ML VL) IV ONE (12:52)
[2020-05-26] MEDS ORDERED: IOPAMIDOL-370 125ML BTL INJ ONE ×2 (13:00)
[2020-05-26] MEDS ORDERED: RX INFO: IV CONTRAST WAS GIVEN 1 EACH MISC MISCELLANE PRN (13:05)
[2020-05-26] MEDS ORDERED: SODIUM CHLORIDE 0.9% 1,000 ML IV SCH (13:15)
[2020-05-26] MEDS ORDERED: hydrALAZINE HCL 20 MG/ML 1 ML VIAL ONE (14:04)
[2020-05-26 14:51] VITALS: RESP 18
--- NOTE | 2020-05-26 16:02 | CC ---
CARDIAC CATHETERIZATION REPORT DATE OF SERVICE: 05/26/2020 PERFORMING PHYSICIAN: Hakeem Lee MD. PROCEDURE PERFORMED: 1. Selective right and left coronary angiogram. 2. Left heart catheterization. INDICATION: This is a 74-year-old gentleman with coronary artery disease and known chronic total occlusion of the RCA as well as peripheral arterial disease and bilateral femoral- popliteal peripheral arterial disease as well as history of smoking, who was experiencing shortness of breath and underwent myocardial perfusion imaging stress test and that revealed an anterior ischemia. Because of that, a heart catheterization was advised. APPROACH: Right radial artery. COMPLICATION: None. LEVEL OF SEDATION: Moderate with sedation length of 14 minutes. PROCEDURE DESCRIPTION: After obtaining an informed consent, the patient was brought to the cardiac laborer bituminous paving. The right radial artery was cannulated using micropuncture technique and a micropuncture wire passed easily, then I placed a 6-Swazi sheath at the right radial artery. After that, I gave the patient 2 mg of verapamil IA and 10,000 units of heparin IV. Selective right and left coronary angiogram performed using JR4 and JL3.5 catheters. Left heart catheterization was performed using 5-Swazi pigtail catheter. The procedure was completed without any complication. SELECTIVE CORONARY ANGIOGRAM: 1. The right coronary artery is chronically occluded in the proximal portion. It fills by collaterals from the left coronary system. 2. The left main is a large caliber vessel. It is calcified. It is angiographically normal. It bifurcates into LCX and LAD. 3. The LCX is a large caliber vessel, it is a codominant vessel. The LCX is angiographically normal. In the proximal portion, it gives rise into an OM branch which appeared to have mild disease only. In the midportion, appeared to have mild disease only. Distally bifurcates into PDA and PLV branches, both appeared to be angiographically normal. 4. The LAD, the proximal LAD is angiographically normal. It gives rise into the first and second diagonal branches, both appeared to be angiographically normal. The LAD in the mid and distal portion appeared to be angiographically normal. 5. HEMODYNAMICS: The LVEDP was 6-8 mmHg without significant gradient across the aortic valve. CONCLUSION: 1. Calcified right and left coronary system. 2. Chronic total occlusion of the RCA which is known from before. 3. Mild disease involving the left coronary system. 4. Normal left ventricular end-diastolic pressure. POSTPROCEDURE MANAGEMENT: 1. Maximize medical treatment. 2. Aggressive cholesterol control. 3. Follow up with the patient. GINNY / EMEKAN: [id number] /
--- NOTE | 2020-05-26 16:08 | LTR ---
May 26, 2020 To: Dr. Melchor Cisneros Re: Reagan Sultana (1945) Dear Dr. Cisneros: Mr. Reagan Sultana underwent today a heart catheterization that revealed chronic total occlusion of the right coronary artery, which is known from before, without any obstructive coronary artery disease in the left coronary system. I advised maximized medical treatment, including aggressive cholesterol control and followup with the patient. Thank you for allowing me to participate in his care. Sincerely, Hakeem Lee M.D. GINNY / OREN: [id number] /
[2020-05-26 17:26] VITALS: BP 161/76; PULSE 78
== END 2020-05-26 17:30 | disposition home or self-care (01) ==
LOC: CATHCVL 09:55
PROVIDERS: ATTEND Internal Medicine Interventional Cardiology
DX: I25.110 Atherosclerotic heart disease of native coronary artery with unstable angina pectoris (principal); I25.84 Coronary atherosclerosis due to calcified coronary lesion; I25.82 Chronic total occlusion of coronary artery; I10 Essential (primary) hypertension; E78.00 Pure hypercholesterolemia, unspecified; I73.9 Peripheral vascular disease, unspecified; E78.5 Hyperlipidemia, unspecified; F17.210 Nicotine dependence, cigarettes, uncomplicated; Z82.49 Family history of ischemic heart disease and other diseases of the circulatory system; Z79.02 Long term (current) use of antithrombotics/antiplatelets; Z79.82 Long term (current) use of aspirin; Z79.899 Other long term (current) drug therapy; Z88.5 Allergy status to narcotic agent; Z88.0 Allergy status to penicillin
CPT/HCPCS: 93458; 80048; C1769; C1894; J2250; J0360; J2001; J1644; Q9967

== ENCOUNTER 2020-07-12 13:35 | Emergency (ER) | payer MEDICARE ==
[2020-07-12 13:40] VITALS: BP 165/89; PULSE 56; RESP 20; TEMP 98.7
--- NOTE | 2020-07-12 14:24 | ED ---
ENT HPI - General Chief complaint: Dental/Oral Stated complaint: Dental Pain Time Seen by Provider: 07/12/20 13:50 Source: patient Mode of arrival: ambulatory Limitations: no limitations - History of Present Illness Initial comments: Patient is a 74-year-old male presenting to the emergency Department with complaints of a possible dental abscess. Patient states last night he felt some mild discomfort of his left upper gumline but no significant pain. Patient states he woke up this morning and noticed swelling of the left side of his face. He states he did have increase in his pain however he took his already prescribed [place] which did help with the pain. He denies any fever or chills, no nausea or vomiting. He states he did talk to his dentist today over the phone and they recommended him coming into the ER to get started on antibiotics. Patient has no further complaints at this time. Upon arrival to the ER, his vitals are stable. - Related Data Home Medications Medication Instructions Recorded Confirmed Melatonin 10 mg PO HS 02/12/15 05/26/20 Atorvastatin [Lipitor] 80 mg PO HS 06/09/16 05/26/20 Cholecalciferol [Vitamin D3 (25 5,000 unit PO DAILY 06/09/16 05/26/20 Mcg = 1000 Iu)] Montelukast [Singulair] 10 mg PO DAILY 06/09/16 05/26/20 HYDROcodone/APAP 10-325MG [[place] 1 tab PO Q6H PRN 06/17/16 05/26/20 10-325] Aspirin 325 mg PO HS 08/02/16 05/26/20 Losartan Potassium 100 mg PO DAILY 08/23/16 05/26/20 amLODIPine BESYLATE [Norvasc] 10 mg PO DAILY 09/27/17 05/26/20 Cyanocobalamin (Vitamin B-12) 5,000 mcg PO HS 05/22/20 05/26/20 [Vitamin B-12] Docusate Sodium [Dok] 100 mg PO BID 05/22/20 05/26/20 Isosorbide Mononitrate [Isosorbide 30 mg PO DAILY 05/22/20 05/26/20 Mononitrate ER] diphenhydrAMINE [Benadryl] 50 mg PO HS 05/22/20 05/26/20 Previous Rx's Medication Instructions Recorded Clopidogrel Bisulfate [Plavix] 75 mg PO DAILY #90 tab 07/15/16 Clindamycin HCl 300 mg PO Q8H 7 Days #21 cap 07/12/20 Clindamycin [Cleocin] 150 mg PO Q8H 7 Days #21 capsule 07/12/20 Allergies Allergy/AdvReac Type Severity Reaction Status Date / Time capsaicin Allergy Burned Skin Verified 07/12/20 13:40 Penicillins Allergy Dyspnea,swe Verified 07/12/20 13:40 lling morphine AdvReac Hallucinati Verified 07/12/20 13:40 ons oxycodone HCl [From Percocet] AdvReac Nausea & Verified 07/12/20 13:40 Vomiting Review of Systems ROS Statement: Those systems with pertinent positive or pertinent negative responses have been documented in the HPI. ROS Other: All systems not noted in ROS Statement are negative. Past Medical History Past Medical History: Coronary Artery Disease (CAD), COPD, Hearing Disorder / Deafness, Hyperlipidemia, Hypertension, Osteoarthritis (OA), Vascular Disorder Additional Past Medical History / Comment(s): sl hearing loss. PAD both legs, fatigue in legs w/ distance walking. 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 PTBA Rt popliteal arthrectomy, PTBA Rt iliac w/ stent. Past Anesthesia/Blood Transfusion Reactions: No Reported Reaction Past Psychological History: No Psychological Hx Reported Smoking Status: Current every day smoker Past Alcohol Use History: None Reported Past Drug Use History: None Reported - Past Family History Mother Family Medical History: Cancer Additional Family Medical History / Comment(s): BREAST CANCER Brother(s) Family Medical History: Cancer Additional Family Medical History / Comment(s): prostate General Exam - General Exam Comments Initial Comments: GENERAL: Patient is well-developed and well-nourished. Patient is nontoxic and in no acute distress. HEAD: Atraumatic, normocephalic. EYES: Pupils equal round and reactive to light, extraocular movements intact, sclera anicteric, conjunctiva are normal. Eyelids were unremarkable. ENT: TMs normal, nares patent, oropharynx clear without exudates. Moist mucous membranes. Patient has some mild swelling of the left side of the face, no overlying erythema, no dental abscess is seen on the left upper gumline, he does have many decayed and extracted teeth on the left upper side. NECK: Normal range of motion, supple without lymphadenopathy or JVD. LUNGS: Unlabored respirations. Breath sounds clear to auscultation bilaterally and equal. No wheezes rales or rhonchi. HEART: Regular rate and rhythm without murmurs, rubs or gallops. ABDOMEN: Soft, nontender, normoactive bowel sounds. No guarding, no rebound. No masses appreciated. : Deferred MUSCULOSKELETAL: Normal extremities with adequate strength and normal range of motion, no pitting or edema. No clubbing or cyanosis. NEUROLOGICAL: Patient is alert and oriented x 3. Motor and sensory are also intact. Cranial nerves II through XII grossly intact. Symmetrical smile. Normal speech, normal gait. PSYCH: Normal mood, normal affect. SKIN: Warm, Dry, normal turgor, no rashes or lesions noted. Limitations: no limitations Course Vital Signs 07/12/20 13:38 Temperature 98.7 F Pulse Rate 56 L Respiratory 20 Rate Blood Pressure 165/89 O2 Sat by Pulse 96 Oximetry Medical Decision Making - Medical Decision Making Patient is a 74-year-old male here for left-sided dental pain 1 day. He is afebrile, no fevers. There is no visible dental abscess seen. He does have some mild swelling of the left side of face. I will start him on clindamycin as he has penicillin ALLERGY. He can follow up with his dentist. Return parameters were discussed with the patient he verbalizes understanding. Discussed with Dr. Cooney. Disposition Clinical Impression: Dental abscess Disposition: HOME SELF-CARE Condition: Stable Instructions (If sedation given, give patient instructions): Dental Abscess (ED) Additional Instructions: Please return to the Emergency Department if symptoms worsen or any other concerns. Please take antibiotic as prescribed. Continue with your already prescribed pain medicines. Follow-up with your dentist as discussed. Prescriptions: Clindamycin [Cleocin] 150 mg PO Q8H 7 Days #21 capsule Clindamycin HCl 300 mg PO Q8H 7 Days #21 cap Is patient prescribed a controlled substance at d/c from ED?: No Referrals: Melchor Cisneros MD [Primary Care Provider] - 1-2 days
== END 2020-07-12 14:31 | disposition home or self-care (01) ==
LOC: EC 13:35
DX: K04.7 Periapical abscess without sinus (principal); E78.5 Hyperlipidemia, unspecified; I25.10 Atherosclerotic heart disease of native coronary artery without angina pectoris; F17.200 Nicotine dependence, unspecified, uncomplicated; I10 Essential (primary) hypertension; M19.90 Unspecified osteoarthritis, unspecified site; Z79.82 Long term (current) use of aspirin; Z79.899 Other long term (current) drug therapy; Z88.0 Allergy status to penicillin; Z88.5 Allergy status to narcotic agent; Z88.8 Allergy status to other drugs, medicaments and biological substances; Z95.5 Presence of coronary angioplasty implant and graft; Z96.641 Presence of right artificial hip joint
CPT/HCPCS: 99282

== ENCOUNTER → 2020-11-12 | Outpatient (CLI) | payer MEDICARE ==
[2020-11-12 12:18] VITALS: BP 172/76; PULSE 45; RESP 18; TEMP 98.7
--- NOTE | 2020-11-12 12:49 | P.PAINCN ---
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 PTBA Rt popliteal arthrectomy, PTBA Rt iliac w/ stent. Past Anesthesia/Blood Transfusion Reactions: No Reported Reaction Smoking Status: Current every day smoker - Past Family History Mother Family Medical History: Cancer Additional Family Medical History / Comment(s): BREAST CANCER Brother(s) Family Medical History: Cancer Additional Family Medical History / Comment(s): prostate Medications and Allergies Home Medications Medication Instructions Recorded Confirmed Type Melatonin 10 mg PO HS 02/12/15 11/11/20 History Atorvastatin [Lipitor] 80 mg PO HS 06/09/16 11/11/20 History Cholecalciferol [Vitamin D3 (25 5,000 unit PO DAILY 06/09/16 11/11/20 History Mcg = 1000 Iu)] Montelukast [Singulair] 10 mg PO HS 06/09/16 11/11/20 History HYDROcodone/APAP 10-325MG [[place] 1 tab PO Q6H PRN 06/17/16 11/11/20 History 10-325] Clopidogrel Bisulfate [Plavix] 75 mg PO DAILY #90 tab 07/15/16 11/11/20 Rx Aspirin 325 mg PO HS 08/02/16 11/11/20 History Losartan Potassium 100 mg PO HS 08/23/16 11/11/20 History amLODIPine BESYLATE [Norvasc] 10 mg PO HS 09/27/17 11/11/20 History Cyanocobalamin (Vitamin B-12) 5,000 mcg PO DAILY 05/22/20 11/11/20 History [Vitamin B-12] Isosorbide Mononitrate [Isosorbide 30 mg PO DAILY 05/22/20 11/11/20 History Mononitrate ER] Docusate [Colace] 100 mg PO DAILY 11/11/20 11/11/20 History Allergies Allergy/AdvReac Type Severity Reaction Status Date / Time capsaicin Allergy Burned Skin Verified 11/11/20 11:54 Penicillins Allergy Dyspnea,swe Verified 11/11/20 11:54 lling morphine AdvReac Hallucinati Verified 11/11/20 11:54 ons oxycodone HCl [From Percocet] AdvReac Nausea & Verified 11/11/20 11:54 Vomiting Physical Exam Vitals: Vital Signs Temp Pulse Resp BP Pulse Ox 11/12/20 12:12 98.7 F 45 L 18 172/76 97 Physical Examinations : -Constitutiona : Cooperative , not in acute distress . -HEENT : nech : supple , no Lymphadenopathy , normal thyroid size . : eyes : no ptosis , no icterus, no photophobia . - neurologic : Cranial nerve II to XII intact , no focal neurological deffecit . -psychatric : alert , oriented X 3 , appropriate affect , intact judgment and insight . -Lymphatic : no Lymphadenopathy . - musculoskeltal : Lumber spine moter stegnth lower extremities ,thigh and legs 5/5 Right side , 5/5 Left side deep tendon reflexes : normal Knee Jerk , normal ankle Jerk lumber facet Loading Test =positive Right , positive Left Range of motion of the lumbar spine Flexion 30 degrees, extension 10 degrees strait leg raising test = positive at 45 degree bilaterally Fabere test= positive Right , and positive LT . tenderness over the Sacroiliac joint on the Right , and Left sides Results Comments: MRI of the lumbar spine= L3 4 and L4 5,l5-S1 laminectomy and multilevel lumbar degenerative disc disease Assessment and Plan Plan: Assessment and plan=1-Lumbar spondylosis with lumbar facet arthropathy without myelopathy. 2-lumbar degenerative disc disease. Patient had more than 80% improvement after the diagnostic medial branch block lumbar area, done on 2 different occasions he would be good candidate for a medial branch lumbar area at L3, L4 ,L5 bilaterally. We have to hold Plavix for 1 week before the procedure Time with Patient: Greater than 30 PQRS Measure Charge Sheet Measure #130: Documentation of Current Meds in Medical Chart: Patient's medications documented in chart Measure #226: Tobacco Use: Screen & Cessation Intervention: Pt screened for tobacco use AND intervention given Measure #111: Pneumonia Vaccination: Pneumococcal vaccine administered or previously received Measure #47: Advance Care Plan: Advance care planning discussed & documented, pt chose/unable to give Measure #412: Opioid Treatment Agreement: No documentation of signed opioid treatment agreement Measure #408: Opioid Therapy Follow-up Evaluation: Patient had NO f/u eval minimum every 3 months during opioid therapy Measure #317: Preventitive Care & Scrn High Bld Press & F/U: Pre-hypertensive or hypertensive BP documented, pt will f/u with PCP Measure #128: Body Mass Index (BMI) Screening & Follow-up: BMI documented ABOVE normal parameters - f/u documented Measure #131: Pain Assessment & Follow-up: Pain positive & plan documented, Follow-up scheduled Measure #431: Unhealthy Alcohol Use Preventative Care & Scrn: Patient not identified as an unhealthy alcohol user PQRS Narrative: Smoking Status Former smoker Blood Pressure 172/76 Pain Intensity [Right Leg] 5 Scale Used Numeric (1 - 10) Hx Alcohol Use (MH) Yes Home Medications: Ambulatory Orders Melatonin 10 mg PO HS 02/12/15 Atorvastatin [Lipitor] 80 mg PO HS 06/09/16 Cholecalciferol [Vitamin D3 (25 Mcg = 1000 Iu)] 5,000 unit PO DAILY 06/09/16 Montelukast [Singulair] 10 mg PO HS 06/09/16 HYDROcodone/APAP 10-325MG [[place] 10-325] 1 tab PO Q6H PRN 06/17/16 Clopidogrel Bisulfate [Plavix] 75 mg PO DAILY #90 tab 07/15/16 Aspirin 325 mg PO HS 08/02/16 Losartan Potassium 100 mg PO HS 08/23/16 amLODIPine BESYLATE [Norvasc] 10 mg PO HS 09/27/17 Cyanocobalamin (Vitamin B-12) [Vitamin B-12] 5,000 mcg PO DAILY 05/22/20 Isosorbide Mononitrate [Isosorbide Mononitrate ER] 30 mg PO DAILY 05/22/20 Docusate [Colace] 100 mg PO DAILY 11/11/20
== END ==
LOC: PNWHC3 12:03
PROVIDERS: ATTEND Specialist
DX: M47.816 Spondylosis without myelopathy or radiculopathy, lumbar region (principal); M51.36 Other intervertebral disc degeneration, lumbar region; J44.9 Chronic obstructive pulmonary disease, unspecified; E78.5 Hyperlipidemia, unspecified; I10 Essential (primary) hypertension; M19.90 Unspecified osteoarthritis, unspecified site; F17.200 Nicotine dependence, unspecified, uncomplicated; Z79.82 Long term (current) use of aspirin; I25.10 Atherosclerotic heart disease of native coronary artery without angina pectoris; Z88.0 Allergy status to penicillin; Z88.5 Allergy status to narcotic agent; Z88.6 Allergy status to analgesic agent; Z79.899 Other long term (current) drug therapy
CPT/HCPCS: 99211

== ENCOUNTER 2020-12-12 11:58 | Day surgery (SDC) | payer MEDICARE ==
[2020-12-10 11:59] VITALS: BMI 34.0
[~2020-12-12 11:58] MED LIST changes: -ALPRAZolam 0.25 MG TAB PO PRN; -ALPRAZolam 0.5 MG TAB PO PRN; -ASPIRIN 325 MG TAB PO STA; -ATORVASTATIN 80 MG TAB PO STA; +LACTATED RINGERS 1,000 ML IV SCH; -NITROGLYCERIN SL TABS 0.4 MG TAB SUBLINGUAL PRN; -SODIUM CHLORIDE 0.9% 1,000 ML in EMPTY BAG 1 BAG IV ONE
[2020-12-12] MEDS ORDERED: LIDOCAINE 1% (10MG/ML) FOR IV START INTRADERMA ONE (12:37)
[2020-12-12 12:42] VITALS: TEMP 97.4
[2020-12-12] MEDS ORDERED: fentaNYL (PF) 50 MCG/ML 2 ML AMP ONE (12:42)
[2020-12-12] MEDS ORDERED: MIDAZOLAM 2 MG/2 ML VIAL ONE (12:42)
[2020-12-12] MEDS ORDERED: ROPIVACAINE 5MG/ML 20ML VIAL ONE (12:44)
[2020-12-12] MEDS ORDERED: methylPREDNISolone ACETATE 40 MG/ML 1 ML VIAL ONE (12:44)
--- NOTE | 2020-12-12 13:11 | P.PCN ---
Date of Procedure: 12/12/20 Procedure(s) Performed: PREOPERATIVE DIAGNOSIS: 1-Lumbar Spondylosis with Facet Arthropathy without myelopathy. 2- Lumber degenerative disc disease. POSTOPERATIVE DIAGNOSIS: 1- Lumbar Spondylosis with Facet Arthropathy without myelopathy. 2- Lumber degenerative disc disease. PROCEDURES : Bilateral Radiofrequency thermocoagulation, L3 , L4 , and L5 medial branch, with fluoroscopic guidance (fluoroscopy images available in the radiology department) ( to denervate the facet joint at L4-5 ,and L5-S1 levels ). ANESTHESIA: Monitored anesthesia care as per anesthesia department. EBL: Minimal PROCEDURE INDICATION: The patient with low back pain secondary to lumbar facet arthropathy who had more than 50% relief of her pain with previous diagnostic lumbar medial branch block with bupivacaine. PROCEDURE DESCRIPTION / TECHNIQUE: The patient was seen and identified in the preoperative area. Risks, benefits, complications, including but not limited to risk of infection ,bleeding , allergic reactions to the medications and no complete pain releife , and alternatives were discussed with the patient, the patient agreed to proceed with the procedure and signed the consent. IV was started. Vital signs remained stable throughout the procedure. Patient was taken to the OR and time out was completed. The patient was placed in the prone position on the procedure table. The lumber area was prepped and draped in the usual sterile fashion. . Vital signs were closely monitored during the procedure .IV sedation was used during the procedure to decrease patients anxiety. Using AP and then oblique fluoroscopy, the ``eye of the Lebron dog corresponding to the connection between the superior and transverse articular processes of right L3, L4, and L5 were identified, marked, and localized with 1% lidocaine. Subsequently, a 18 [id number] radiofrequency cannula with a 10- mm active tip was advanced guided by fluoroscopy to each of the``eyes of the Lebron dog at right L3, L4, and L5. Each site then underwent sensory testing at 50 Hz and 0 to 1 volt and motor testing at 2.5 Hz and 0 to 3 volt with local stimulation, but no radicular symptoms down the legs. Thereafter each sites underwent radiofrequency thermocoagulation at 80 degrees celsius for 90 seconds after injecting 0.5 ml of PF Ropivacaine 1ml, then after the thermocoagulation done , 1 ml of the block solution containing Depo-Medrol 20 mg and 3 ml of Ropivacaine 0.5% was injected at the right L3 , L4 , and L5 , levels after negative aspiration of CSF and blood and with no paresthesias. Cannulas were retracted while injecting lidocaine 1% until the needle is out. The same procedure was repeated at the level of Left L3, L4, and L5 levels. At the end of the procedure, the skin was cleansed and bandages were applied. COMPLICATIONS: No acute complications. DISPOSITION / PLANS: The patient was placed in a supine position and transferred to the recovery area in a stable condition for observation and was discharged from the recovery room after meeting discharge criteria. Home discharge instructions given to the patient by the staff. The patient was reexamined prior to discharge. The patient will schedule a follow up in the clinic in 2-4 weeks.
[2020-12-12] MEDS ORDERED: IV FLUID CONTINUATION 1,000 ML IV ONE (13:16)
--- NOTE | 2020-12-12 13:18 | FL ---
Fluoroscopy HISTORY: Pain 16 seconds fluoroscopy time supplied to the referring clinician. 6 intraoperative C-arm images docum ent the procedure. See dictated report from anesthesia.
[2020-12-12 13:19] VITALS: RESP 18
[2020-12-12 13:34] VITALS: BP 150/72; PULSE 72
== END 2020-12-12 14:05 | disposition home or self-care (01) ==
LOC: ORPAIN 11:58
PROVIDERS: ATTEND Specialist
DX: M47.816 Spondylosis without myelopathy or radiculopathy, lumbar region (principal); M51.36 Other intervertebral disc degeneration, lumbar region; I25.10 Atherosclerotic heart disease of native coronary artery without angina pectoris; I10 Essential (primary) hypertension; F17.210 Nicotine dependence, cigarettes, uncomplicated; M19.90 Unspecified osteoarthritis, unspecified site; Z79.02 Long term (current) use of antithrombotics/antiplatelets; Z79.82 Long term (current) use of aspirin; Z88.6 Allergy status to analgesic agent; Z88.5 Allergy status to narcotic agent; Z88.0 Allergy status to penicillin; Z79.899 Other long term (current) drug therapy
CPT/HCPCS: 64635; 64636; J2250; J1030; J3010; J2795

== ENCOUNTER → 2021-01-26 | Outpatient (CLI) | payer MEDICARE ==
[2021-01-26 13:26] VITALS: BP 132/77; PULSE 70; RESP 18; TEMP 98.5
--- NOTE | 2021-01-26 13:32 | P.PAINPG ---
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 Paulson, she reported that he got more than 80% improvement of his low back pain after each diagnostic medial branch block, so we performed bilateral RFA L4-5 and L5-S1. he denies any motor or sensory deficits he denies any fever or night sweats he denies any change in the bowel movement or urination Patient said he got about 50% relief from the radiofrequency ablation and that the relief is still there and might even getting better. Patient's primary complaint today is pain over the lateral aspect of the right hip. Pain upon palpation as well as pain laying on his right side. Pain is relatively constant throughout the day described as sharp and stabbing. He has a history of a right hip replacement. Physical Examinations : -Constitutiona : Cooperative , not in acute distress . -HEENT : nech : supple , no Lymphadenopathy , normal thyroid size . : eyes : no ptosis , no icterus, no photophobia . - neurologic : Cranial nerve II to XII intact , no focal neurological deffecit . -psychatric : alert , oriented X 3 , appropriate affect , intact judgment and insight . -Lymphatic : no Lymphadenopathy . - musculoskeltal : Lumber spine moter stegnth lower extremities ,thigh and legs 5/5 Right side , 5/5 Left side deep tendon reflexes : normal Knee Jerk , normal ankle Jerk lumber facet Loading Test =positive Right , positive Left Range of motion of the lumbar spine Flexion 30 degrees, extension 10 degrees strait leg raising test = positive at 45 degree bilaterally Fabere test= positive Right , and positive LT . tenderness over the Sacroiliac joint on the Right , and Left sides Point tenderness over right greater trochanteric area Results Comments: MRI of the lumbar spine= L3 4 and L4 5,l5-S1 laminectomy and multilevel lumbar degenerative disc disease Hip CT 11/2019 No acute fracture. Postsurgical changes correlating with the prosthetic right hip. Spurring along the greater trochanter with soft tissue thickening can be associated with trochanteric bursitis. Assessment and Plan Plan: Assessment and plan=1-Lumbar spondylosis with lumbar facet arthropathy without myelopathy. 2-lumbar degenerative disc disease. Proceed w R greater trochanteric bursa injection. It's possible patient merely has a trigger point if the bursa was removed during the hip procedure; but regardless it seems either bursa or myofascial in nature and an injection could be of some benefit. PQRS Measure Charge Sheet Measure #130: Documentation of Current Meds in Medical Chart: Patient's medications documented in chart Measure #226: Tobacco Use: Screen & Cessation Intervention: Pt screened for tobacco use AND intervention given Measure #111: Pneumonia Vaccination: Pneumococcal vaccine administered or previously received Measure #47: Advance Care Plan: Advance care planning discussed & documented, pt chose/unable to give Measure #412: Opioid Treatment Agreement: No documentation of signed opioid treatment agreement Measure #408: Opioid Therapy Follow-up Evaluation: Patient had NO f/u eval minimum every 3 months during opioid therapy Measure #317: Preventitive Care & Scrn High Bld Press & F/U: Pre-hypertensive or hypertensive BP documented, pt will f/u with PCP Measure #128: Body Mass Index (BMI) Screening & Follow-up: BMI documented ABOVE normal parameters - f/u documented Measure #131: Pain Assessment & Follow-up: Pain positive & plan documented, Follow-up scheduled Measure #431: Unhealthy Alcohol Use Preventative Care & Scrn: Patient not iden tified as an unhealthy alcohol user PQRS Narrative: I have spent 27 minutes on review of the records, review of the imaging available, [id number] interaction with the patient, medication management, follow-up care coordination and record creatio PQRS Measure Charge Sheet PQRS Narrative: Smoking Status Former smoker Pain Intensity [Right Hip] 7 Pain Intensity [Back] 4 Hx Alcohol Use (MH) Yes Home Medications: Ambulatory Orders Melatonin 10 mg PO HS 02/12/15 Atorvastatin [Lipitor] 80 mg PO HS 06/09/16 Cholecalciferol [Vitamin D3 (25 Mcg = 1000 Iu)] 5,000 unit PO DAILY 06/09/16 Montelukast [Singulair] 10 mg PO HS 06/09/16 HYDROcodone/APAP 10-325MG [[place] 10-325] 1 tab PO Q6H PRN 06/17/16 Clopidogrel Bisulfate [Plavix] 75 mg PO DAILY #90 tab 07/15/16 Aspirin 325 mg PO HS 08/02/16 Losartan Potassium 100 mg PO HS 08/23/16 amLODIPine BESYLATE [Norvasc] 10 mg PO HS 09/27/17 Cyanocobalamin (Vitamin B-12) [Vitamin B-12] 5,000 mcg PO DAILY 05/22/20 Isosorbide Mononitrate [Isosorbide Mononitrate ER] 30 mg PO QAM 05/22/20 Docusate [Colace] 100 mg PO BID 11/11/20 Doxylamine Succinate [Unisom] 25 mg PO HS 12/10/20 Controlled Substance Measures - Controlled Substance Measures Is patient prescribed a controlled substance at discharge?: No
== END | disposition home or self-care (01) ==
LOC: PNWHC3 13:14
PROVIDERS: ATTEND Anesthesiology
DX: M51.36 Other intervertebral disc degeneration, lumbar region (principal); M47.896 Other spondylosis, lumbar region; M46.96 Unspecified inflammatory spondylopathy, lumbar region
CPT/HCPCS: 99211

== ENCOUNTER 2021-02-24 13:03 | Day surgery (SDC) | payer MEDICARE ==
[2021-02-18 09:29] VITALS: BMI 32.1
[2021-02-24 13:33] VITALS: RESP 16; TEMP 97.5
[2021-02-24] MEDS ORDERED: LACTATED RINGERS 1,000 ML IV ONE ×2 (13:35)
[2021-02-24] MEDS ORDERED: MIDAZOLAM 2 MG/2 ML VIAL ONE (13:38)
[2021-02-24] MEDS ORDERED: ROPIVACAINE 5MG/ML 20ML VIAL ONE (13:38)
[2021-02-24] MEDS ORDERED: fentaNYL (PF) 50 MCG/ML 2 ML AMP ONE (13:38)
[2021-02-24] MEDS ORDERED: TRIAMCINOLONE ACETONIDE 40 MG/ML 1 ML VIAL ONE (13:38)
[2021-02-24] MEDS ORDERED: IOPAMIDOL M200 10 ML VIAL ONE (13:38)
[2021-02-24] MEDS ORDERED: HYDROcodone/APAP 10-325MG 1 EACH TAB PO PRN (13:53)
--- NOTE | 2021-02-24 13:56 | P.PCN ---
Date of Procedure: 02/24/21 Operative Findings: Pre- and Post-operative Diagnosis: Right-sided Trochanteric Bursitis Procedure: Right Greater Trochanteric Bursa injection under fluoroscopic guidance Surgeon: Dr.Rudram Grande Anesthesia: Local: 1% Lidocaine, IV sedation : Versed and fentanyl Complications: none Fluoroscopic image: saved to electronic medical records Indications for Procedure: Patient had a history of greater trochanteric bursitis. Tried conservative therapy with minimal response. Came here for intervention procedure. Procedure and Findings: The patient was seen and examined. The written informed consent was obtained after explaining the risks, benefits and alternatives of the procedure to the patient. Patient agreed to proceed for the procedure signed the informed consent. IV started for intraoperative sedation. The patient was brought to the procedure room and was placed in supine position on the operating table. The anesthesia was started as mentioned above and monitoring was done with noninvasive blood pressure cuff, EKG and pulse oximetry. The skin preparation was done with ChloraPrep 2, and draping was done in usual sterile fashion. Sterile technique was observed throughout the procedure. Using fluoroscope in the AP view, the greater trochanter was identified. The middle of the greater trochanter was targeted for needle placement. 3 ml of 1% Lidocaine was injected with a 25 gauge needle to achieve adequate local anesthesia of the skin and subcutaneous tissue. A 22 gauge 3.5 inch needle was introduced and advanced into the target area under direct fluoroscopic guidance. A bony contact was felt and the needle was withdrawn for about two millimeters. 1 mL of Isovue 200 contrast was injected after negative aspiration to see the spread along the greater trochanteric bursae area. A negative aspiration was confirmed. A total of 5ml solution containing Kenalog 40 mg and 4 ml of 0.5% preservative-free ropivacaine was injected slowly. The needle was removed intact, area was cleaned and bandage was applied. The patient tolerated the procedure very well. Additional comments: None Disposition : The patient was transferred to the recovery room and remained stable until discharged home. The patient was given detailed discharge instructions for infection, bleeding, increased pain at the injection site, and was advised to seek immediate medical attention should significant side effects develop. Patient was routinely examined by RN before discharging home. The patient will be followed up with Pain Clinic within 4 weeks.
[2021-02-24] MEDS ORDERED: LACTATED RINGERS 1,000 ML IV SCH (14:00)
[2021-02-24] MEDS ORDERED: IV FLUID CONTINUATION 600 ML IV ONE (14:10)
[2021-02-24 14:32] VITALS: BP 135/79; PULSE 56
--- NOTE | 2021-02-24 14:52 | FL ---
EXAMINATION TYPE: FL guided pain mgmt statistic DATE OF EXAM: 02/24/2021 HISTORY: Fluoroscopy time 4 seconds of fluoroscopy provided. IMPRESSION: 1. Fluoroscopy time.
[2021-02-24] MEDS ORDERED: ASPIRIN 325 MG TAB PO SCH (21:00)
[2021-02-24] MEDS ORDERED: NON FORMULARY DRUG (Losartan Potassium [Losartan Potassium] 100 MG Tablet) PO SCH (21:00)
[2021-02-24] MEDS ORDERED: DOCUSATE 100 MG CAP PO SCH (21:00)
[2021-02-24] MEDS ORDERED: MELATONIN 3 MG TABLET PO SCH (21:00)
[2021-02-24] MEDS ORDERED: MONTELUKAST 10 MG TAB PO SCH (21:00)
[2021-02-24] MEDS ORDERED: amLODIPine 10 MG TAB PO SCH (21:00)
[2021-02-24] MEDS ORDERED: ATORVASTATIN 10 MG TAB PO SCH (21:00)
[2021-02-24] MEDS ORDERED: NON FORMULARY DRUG (Doxylamine Succinate [Unisom] 25 MG Tablet) PO SCH (21:00)
[2021-02-25] MEDS ORDERED: CLOPIDOGREL 75 MG TAB PO SCH (09:00)
[2021-02-25] MEDS ORDERED: NON FORMULARY DRUG (Cholecalciferol 1,000 UNIT Tab) PO SCH (09:00)
[2021-02-25] MEDS ORDERED: ISOSORBIDE MONONITRATE ER 30 MG TAB.ER.24H PO SCH (09:00)
[2021-02-25] MEDS ORDERED: CYANOCOBALAMIN 5000 MCG PO SCH (09:00)
== END 2021-02-24 14:36 | disposition home or self-care (01) ==
LOC: ORPAIN 13:03
DX: M70.61 Trochanteric bursitis, right hip (principal)
CPT/HCPCS: 20610; J2250; J3301; J3010; Q9966; J2795; 99152

== ENCOUNTER → 2023-04-25 | Outpatient (CLI) | payer MEDICARE ==
--- NOTE | 2023-04-25 11:34 | CT ---
EXAMINATION TYPE: CT chest wo con DATE OF EXAM: 04/25/2023 COMPARISON: 12/21/2019, 10/09/2018 HISTORY: abnormal lung field, multiple lung nodules CT DLP: 582.0 mGycm. Automated Exposure Control for Dose Reduction was Utilized. TECHNIQUE: CT scan of the thorax is performed without IV contrast. FINDINGS: LUNGS: Numerous bilateral 5 mm less pulmonary nodules are seen. Some appear to be new with reference to image 31 series 4 with multiple new additional sub-5 mm nodules. Also appear to be multiple additi onal new sub-5 mm nodules in the right upper lobe. There is reticular and interlobular septal thicken ing compatible with chronic interstitial lung disease.. No localized pneumonia. No pleural effusion o r pneumothorax. MEDIASTINUM: Lack of IV contrast is noted to limit evaluation for mediastinal and especially hilar ad enopathy. There are no definitive greater than 1 cm hilar or mediastinal lymph nodes. No cardiomega ly or pericardial effusion is seen. Coronary artery calcification. Aorta normal caliber with atherosc lerotic changes. Calcification of the aortic valve. Small hiatal hernia. OTHER: Hypertrophic and degenerative changes of the spine. Atrophy of the pancreas. IMPRESSION: 1. There is interval progression of chronic interstitial lung disease most likely in the basis of the pulmonary fibrosis. Favor UIP type. 2. There is interval increase in the number of bilateral sub-5 mm pulmonary nodules relative to the p rior exam. Although these could be postinfectious\postinflammatory a neoplastic process would still b e within the differential diagnosis.
== END | disposition home or self-care (01) ==
LOC: RADCTMAIN 10:44
PROVIDERS: ATTEND Family Medicine
DX: J84.9 Interstitial pulmonary disease, unspecified (principal); R91.8 Other nonspecific abnormal finding of lung field
CPT/HCPCS: 71250

== ENCOUNTER → 2023-08-12 | Outpatient (CLI) | payer MEDICARE ==
--- NOTE | 2023-08-12 20:22 | CT ---
EXAMINATION TYPE: CT chest wo con CT DLP: 520.4 mGycm, Automated exposure control for dose reduction was used. DATE OF EXAM: 08/12/2023 3:59 PM COMPARISON: 04/25/2023. CLINICAL INDICATION:Male, 77 years old with history of R91.1 SOLITARY PULMONARY NODULE; [facility], f/u on p ulmonary nodule TECHNIQUE: Multiple axial images were obtained through the chest. Sagittal and coronal reformats were created for review. Contrast used: mL of (None if empty) Oral contrast used: (None if empty) FINDINGS: LUNGS/ PLEURA: Chronic interstitial lung disease changes with scattered reticulations throughout the lungs. There is scattered diffuse pulmonary nodules which are less than 6 mm. The largest in the righ t lung apex measuring 5 mm series 3 image 12 in the left lower lobe superior segment measuring 4 mm i mage 27 in the right lower lobe superior segment measuring 5 mm image 34. No evidence of honeycombing. Mild to moderate emphysema changes are present. AIRWAY: Patent and unremarkable. No bronchiectasis or bronchial wall thickening. HEART: Size within normal limits. Atherosclerosis of the coronary arteries. MEDIASTINUM: No gross evidence of adenopathy. VASCULATURE: No aortic aneurysm. MUSCULOSKELETAL: No acute osseous abnormalities SOFT TISSUES/LYMPH NODES: Unremarkable. LOWER NECK: No significant findings. UPPER ABDOMEN: Fatty atrophy changes of the pancreatic parenchyma. Left probable renal cyst. IMPRESSION: Similar chronic interstitial lung disease most likely in the basis of the pulmonary fibrosis. There is interval increase in the number of bilateral sub-5 mm pulmonary nodules relative to the prio r exam. Although these could be postinfectious postinflammatory, developing neoplastic process would still be within the differential diagnosis. Continued surveillance recommended.
== END | disposition home or self-care (01) ==
LOC: RADCTMAIN 15:39
PROVIDERS: ATTEND Family Medicine
DX: R91.1 Solitary pulmonary nodule (principal)
CPT/HCPCS: 71250